=== PATIENT | male | born 1975 | race Caucasian/White ===

== ENCOUNTER 2019-03-23 13:44 | Emergency (ER) | payer OTHER ==
[~2019-03-23] VITALS: Ht 177.8 cm; Wt 97.5 kg
[2019-03-23 13:47] VITALS: Ht 177.8 cm; Wt 97.5 kg
[2019-03-23 15:19] VITALS: BP 121/80
== END 2019-03-23 15:19 | disposition home or self-care (01) ==
LOC: ED 13:44
DX: M54.5 Low back pain (principal); X50.0XXA Overexertion from strenuous movement or load, initial encounter; Y93.89 Activity, other specified; Y92.89 Other specified places as the place of occurrence of the external cause; Y99.8 Other external cause status
CPT/HCPCS: J1885

== ENCOUNTER 2019-10-12 18:06 | Emergency (ER) | payer OTHER ==
[~2019-10-12] VITALS: Ht 177.8 cm; Wt 100.7 kg
[2019-10-12 18:24] VITALS: Ht 177.8 cm; Wt 100.7 kg
[2019-10-12 20:17] LABS: microscopic required? YES; urine erythrocyte TRACE (NEGATIVE)
[2019-10-12 21:15] LABS: BASOPHIL % 0.1 % (0-2); PLATELET COUNT 224 x10^3mcL (130-400); RED CELL DISTRIBUTION WIDTH 13.4 % (11.5-14.5)
[2019-10-12 21:53] LABS: CALCIUM 9.1 mg/dL (8.5-10.1); CARBON DIOXIDE 26.8 mmol/L (21-32); CHLORIDE SERUM 99 mmol/L (98-107); CREATININE SERUM 0.9 mg/dL (0.7-1.3); GFR1 > 60 mL/min; GLUCOSE SERUM 100 mg/dL (74-106); POTASSIUM SERUM 4.5 mmol/L (3.5-5.1); SODIUM SERUM 133 mmol/L (136-145)
[2019-10-12 21:58] LABS: ALBUMIN 3.5 g/dL (3.4-5.0); ALKALINE PHOSPHATASE 74 U/L (46-116); ALT/SGPT 70 U/L (16-63); AST/SGOT 32 U/L (15-37); BILIRUBIN TOTAL 0.79 mg/dL (0.20-1.00); TOTAL PROTEIN, SERUM 7.6 g/dL (6.4-8.2)
[2019-10-12 23:34] VITALS: BP 118/68
== END 2019-10-12 23:34 | disposition home or self-care (01) ==
LOC: ED 18:06
PROVIDERS: Emergency Medicine
DX: R10.30 Lower abdominal pain, unspecified (principal); Z88.5 Allergy status to narcotic agent
CPT/HCPCS: 36415; 87804; J1885